=== PATIENT | female | born 2000 | race Caucasian/White ===

== ENCOUNTER 2019-07-13 21:46 | Inpatient (IN) ==
[2019-07-13] MEDS ORDERED: NS 2,000 ML IV ONE (22:09)
--- NOTE | 2019-07-13 22:16 | PROVIDER DOCUMENTATION ---
HPI-General Adult - General Chief Complaint: High Blood Sugar Stated Complaint: PT. STATES DKA Time Seen by Provider: 07/13/19 22:07 Source: patient, family Allergies/Adverse Reactions: Patient Allergies Allergy/AdvReac Type Severity Reaction Status Date / Time No Known Allergies Allergy Verified 07/13/19 22:10 Home Medications: Home Medication List Medication Instructions Recorded Confirmed Last Taken Type Insulin Glargine,Hum.rec.anlog 15 unit SQ QHS 07/13/19 07/13/19 Unknown History [Lantus Solostar] Insulin Lispro [Humalog Kwikpen] 10 unit SQ 4XDAY 07/13/19 07/13/19 Unknown History - History of Present Illness -Gen Adult Nature of Presenting Problems: 19 YO F pmh for DM I on Lantus and Novalog presents with ShOB, achyness, increased heart rate that began today. Pt states " I am in DKA". States her last time for DKA was 1 year ago, and she had an e.coli infection. She denies dysuria currently. Some c/o ShOB and cough. Quality of Pain: reports: aching (generalized pain) Onset/Duration: reports: this afternoon Timing: reports: still present Similar Symptoms Previously?: Yes Recently seen or treated by another doctor?: No - Diabetes Related Context Context: reports: high blood sugar Review of Systems - Adult - REVIEW OF SYSTEMS - ADULT Constitutional: denies: chills, fever Eyes: reports: no symptoms reported Ears, Nose, Mouth & Throat: reports: no symptoms reported Cardiovascular: reports: palpitations. denies: chest pain Respiratory: reports: shortness of breath, other (chest discomfort). denies: cough Gastrointestinal: reports: no symptoms reported Genitourinary: reports: no symptoms reported Musculoskeletal: reports: other (aching) Past History - Adult - PAST MEDICAL HISTORY-ADULT Review of Records: reports: Social history reviewed & non-contributory. Major Childhood Illnesses: reports: denies history Cardiovascular: reports: denies history Respiratory: reports: denies history Gastrointestinal: reports: denies history Neurological: reports: denies history Diabetes Type: Type 1 Diabetes controlled by:: Insulin Dependent - PRIOR SURGERIES/PROCEDURES Surgical/Procedure History: denies: recent surgery - FAMILY HISTORY Family History: reviewed, not pertinent - SOCIAL HISTORY Smoking: non-smoker Substance Use: denies Living Situation: family Physical Exam-General - PHYSICAL EXAM-ADULT Initial Vital Signs Reviewed: Yes - CONSTITUTIONAL General Appearance: alert, mild distress (tachypnea) - EYES Eyes: PERRL/EOMI - HEAD, EARS, NOSE, MOUTH & THROAT HENMT: other (dry mucous membranes) - NECK Neck: supple - RESPIRATORY Respiratory: lungs clear - CARDIOVASCULAR Cardiovascular: tachycardia - GASTROINTESTINAL (ABDOMEN) Abdominal Exam: non tender, soft - MUSCULOSKELETAL Extremity: normal range of motion, normal gait - SKIN Integumentary: normal color, normal turgor, warm/dry - NEUROLOGIC Neurologic: grossly normal - PSYCHIATRIC Psych/Mental Status: normal mood/affect, normal thought content, normal thought process, oriented x 3 Progress - PLAN OF CARE/RESULTS Progress/Plan/Lab Results: Vital Signs - 8 hr 07/13/19 21:49 Temperature 98.2 F Pulse Rate 141 H Respiratory Rate 24 Blood Pressure 115/77 O2 Sat by Pulse Oximetry 99 Laboratory Results - last 24 hr 07/13/19 22:03 POC Glucose 500 H Orders Category Date Time Status ED: Urine Bedside ORDERED Care 07/13/19 22:10 Ordered CHEST-2 VIEWS [RAD] Stat Exams 07/13/19 22:08 Ordered CBC WITH ELECTRONIC DIFF [HEME] Stat Lab 07/13/19 22:08 Uncollected COMPREHENSIVE METABOLIC PANEL [CHEM] Stat Lab 07/13/19 22:08 Uncollected LACTATE, PLASMA [CHEM] Stat Lab 07/13/19 22:09 Uncollected TSH Stat Lab 07/13/19 22:08 Uncollected URINALYSIS W/POSS RFLX CULT [URINALYSIS] Stat Lab 07/13/19 22:08 Uncollected 0.9% Sodium Chloride Inj [Ns] 2,000 ml Med 07/13/19 22:09 Active IV 999 mls/hr Result Diagrams: 07/13/19 22:58 07/13/19 22:58 - REASSESSMENT Reassessment #1 Time Reassessed: 00:50 Status: improving (labs reviewed, showing acidosis. HR improving to 120s. fluids running. Ketones in urine, elevated WBC.) Reassessment #2 Time Reassessed: 01:19 Status: improving (blood glucose down to 266. pt clinically improving.) - XRAY 1 XRAY Study: Chest Impression: Normal - CONSULTS/PCP/HOSPITALIST Notification #1 *Consult/PCP/Hospitalist*: Dr. Quintero Time Discussed: 02:16 (states to start insulin drip) Consult Disposition: Will see in ED Departure - Departure Date of Disposition Decision: 07/14/19 Time of Disposition Decision: 02:31 DIAGNOSIS: DKA (diabetic ketoacidoses) Disposition: ADMITTED INPATIENT 09 Certified Medical Emergency: Emergent Condition: Stable Referrals and Follow-Ups: None,PCP [Primary Care Provider] - - Critical Care Note This patient required my direct & personal management of CC.: No Attestation - Physician/ MARIAELENA Attestation The physician spent face to face time with patient:: Yes Advanced Practice Provider documentation review:: Supervising physician onsite and consulted in the evaluation and care of this patient. The physician did have a face to face encounter with the patient.
[2019-07-13] MEDS ORDERED: HUMALOG SUBQ ONE (22:24)
[2019-07-13 23:25] LABS: BASO# 0.07 X1000 (0.0-0.2); BASO% 0.3 % (0.0-0.8); EOS# 0.04 X1000 (0.0-0.7); EOS% 0.2 % (0.0-10.0); HEMATOCRIT 42.8 % (37.0-47.0); HEMOGLOBIN 13.3 g/dL (12.0-16.0); IMM GRAN# 0.14 X1000 (0.0-0.04); IMM GRAN% 0.7 % (0.0-0.5); LYMPH# 2.53 X1000 (1.2-3.4); MCH 30.9 PG (27-31); MCHC 31.1 g/dL (33-37); MCV 99.3 FL (81-99); MONO# 0.99 X1000 (0.11-0.59); MONO% 4.7 % (1.7-9.3); MPV 9.9 FL (7.4-10.4); NEUT# 17.23 X1000 (1.4-6.5); NEUT% 82.1 % (42.2-75.2); PLT 578 X1000 (130-400); RBC 4.31 XMIL (4.2-5.4); RDW 13.7 % (11.5-14.5)
[2019-07-13 23:54] LABS: ALLEN TEST YES; BE -19.2 mmoll (-3.0-3.0); BLOOD TYPE ARTERIAL; HCO3-(ACT) 9.9 mmoll (20.0-26.0); METHB 1.4 % (0.0-1.5); O2HB 95.9 % (95.0-99.0); PO2(98.6) 116 mmHg (60-100); SAMPLE BLOOD; SAO2 98.5 % (95.0-100.0); THB 12.5 g/dL (11.5-17.4); pH(98.6) 7.24 (7.35-7.45)
[2019-07-13 23:56] LABS: MODALITY ROOM AIR; PCO2(98.6) 13 mmHg (35-45)
[2019-07-14 00:03] LABS: INR 1.06
[2019-07-14 00:04] LABS: AGAP 38; ALB/GLOB RATIO 1.1; ALBUMIN 4.5 g/dL (3.5-5.0); ALKALINE PHOSPHATASE 221 U/L (32-104); BUN 13 mg/dL (8-22); CALCIUM 9.3 mg/dL (8.8-10.2); CHLORIDE 94 mmol/L (98-107); COSMO 297; CREATININE 1.3 mg/dL (0.5-0.9); ESTIMATED GFR 52; GOT 21 U/L (10-30); GPT 21 U/L (10-36); POTASSIUM 4.1 mmol/L (3.5-5.1); SODIUM 138 mmol/L (136-145); TCO2 6 mmol/L (25-35); TOTAL BILIRUBIN < 0.15 mg/dL (0.20-1.00); TOTAL PROTEIN 8.6 g/dL (6.3-8.3)
[2019-07-14 00:05] LABS: GLUCOSE 480 mg/dL (70-104)
[2019-07-14 00:06] LABS: PTT < 20.0 Seconds (22.3-41.8)
[2019-07-14 00:14] LABS: URINE SOURCE CLEAN CATCH
[2019-07-14 00:30] LABS: BILIRUBIN URINE NEGATIVE (NEGATIVE); BLOOD URINE MODERATE (NEGATIVE); COLOR STRAW; GLUCOSE URINE >1000 mg/dL (NEGATIVE); KETONE URINE >150 mg/dL (NEGATIVE); LEUKOCYTES URINE NEGATIVE (NEGATIVE); NITRITE URINE NEGATIVE (NEGATIVE); PH URINE 5.5; PROTEIN URINE 30 mg/dL (NEGATIVE); SP GRAVITY URINE 1.027; TURBIDITY URINE CLEAR (CLEAR); UR EPITHELIAL CELLS <10 /HPF (<10); URINE BACTERIA NEGATIVE /HPF; URINE RBC <10 /HPF (<10); URINE WBC <10 /HPF (<10); UROBILINOGEN URINE NORMAL (NORMAL)
[2019-07-14] MEDS ORDERED: HUMALOG SUBQ ONE (00:48)
[2019-07-14] MEDS ORDERED: ZOFRAN ODT PO ONE (00:52)
[2019-07-14] MEDS ORDERED: HUMULIN R IV ONE ×2 (02:25→04:50)
[2019-07-14] MEDS ORDERED: D50W SYRINGE IV PRN ×2 (02:25→04:50)
[2019-07-14] MEDS ORDERED: HUMULIN R 100 UNIT in NS 100 ML IV SCH ×5 (02:30→04:50)
[2019-07-14 02:40] LABS: AGAP 29; BUN 11 mg/dL (8-22); CHLORIDE 103 mmol/L (98-107); COSMO 287; CREATININE 1.1 mg/dL (0.5-0.9); ESTIMATED GFR > 60; GLUCOSE 209 mg/dL (70-104); POTASSIUM 3.2 mmol/L (3.5-5.1); SODIUM 141 mmol/L (136-145); TCO2 9 mmol/L (25-35)
[2019-07-14] MEDS ORDERED: KLOR-CON PO ONE (03:00)
[2019-07-14 03:22] LABS: MAGNESIUM 1.9 mg/dL (1.5-2.7); PHOSPHORUS 2.2 mg/dL (2.7-4.5)
[2019-07-14] MEDS ORDERED: D5 NS 1,000 ML IV SCH (03:45)
[2019-07-14] MEDS ORDERED: POTASSIUM CHLORIDE 20% LIQUID PO PRN ×2 (03:45→04:50)
[2019-07-14] MEDS ORDERED: POTASSIUM CHLORIDE 20 MEQ/SWI 20 MEQ/100 ML IVPB IV PRN ×2 (03:45→04:50)
[2019-07-14] MEDS ORDERED: SODIUM BICARBONATE 8.4% 100 MEQ in STERILE WATER INJ. 500 ML IV PRN ×2 (03:45→04:50)
[2019-07-14] MEDS ORDERED: POTASSIUM CHLORIDE 40 MEQ/SWI 40 MEQ/100 ML IVPB IV PRN ×2 (03:45→04:50)
[2019-07-14] MEDS ORDERED: NS 1,000 ML IV SCH (03:45)
[2019-07-14] MEDS ORDERED: SODIUM PHOSPHATE 30 MMOL in D5W 250 ML IV PRN (03:45)
[2019-07-14] MEDS ORDERED: MAGNESIUM SULFATE 2 GM/S.W.I. 2 GM/50 ML IVPB IV PRN ×2 (03:45→04:50)
[2019-07-14] MEDS ORDERED: POTASSIUM CHLORIDE 10% LIQUID PO PRN (03:45)
--- NOTE | 2019-07-14 04:47 | HISTORY AND PHYSICAL ---
PRIMARY CARE PHYSICIAN: Dr. Danny Rangel in [place]. CHIEF COMPLAINT: Nausea, not feeling well. HISTORY OF PRESENTING ILLNESS: This is a 19-year-old female with a history of diabetes mellitus type 1 who had presented to the emergency department with several days history of having nausea. She was evaluated in the emergency department. She was found to be in DKA and subsequently she will need admission for further management. At the time of my examination, patient denied any headache, fever, chills, chest pain, shortness of breath or any weight changes, just complained of nausea and not feeling well. PAST MEDICAL HISTORY: Includes diabetes mellitus type 1. PAST SURGICAL HISTORY: None. ALLERGIES: No known drug allergies. CURRENT MEDICATIONS: Include Lantus and NovoLog. SOCIAL HISTORY: She was vaping but she quit. No history of alcohol or illicit drug use. FAMILY HISTORY: No history of coronary disease. REVIEW OF SYSTEMS: Fourteen point review of systems as listed in HPI. Other systems negative. PHYSICAL EXAMINATION: GENERAL: Cooperative, friendly female. She is resting comfortably now. VITAL SIGNS: Temperature 98.2 degrees, pulse 141, respirations 24, blood pressure 115/77. HEENT: Atraumatic, normocephalic. Extraocular movements intact. PERRLA. NECK: No masses. CHEST: Clear to auscultation. CARDIOVASCULAR: Regular rate and rhythm. ABDOMEN: Soft. Positive bowel sounds. EXTREMITIES: No edema. NEUROLOGIC: She is awake, alert, oriented x3. GENITOURINARY: No bladder distention. SKIN: Warm. LABORATORIES AND STUDIES: Sodium 138, potassium 4.1, chloride 94, CO2 is 6, BUN is 13, creatinine is 1.3, glucose is 480, initially was 500. Plasma lactate 5.8. WBCs 21.00, hemoglobin 13.3, hematocrit 42.8, platelets 578,000. Blood gases show pH of 7.24, pCO2 of 13. Toxicology screen shows acetone. ASSESSMENT: A 19-year-old female with a history of diabetes mellitus type 1 who presented to emergency department with several days history of feeling nauseated. She was evaluated in the emergency department. She was found to have moderately elevated blood glucose and acetone on her laboratories. Her findings were consistent with diabetic ketoacidosis. Subsequently, she will need admission for further management. Diabetic ketoacidosis. PLAN: 1. We will admit patient to PVC unit. 2. We will start patient on insulin drip per DKA protocol. 3. We will continue with IV fluid hydration. 4. We will continue to follow, and reassess and make further recommendation based on patient's clinical course. cc: Neeraj Quintero MD
[2019-07-14] MEDS ORDERED: TYLENOL PO PRN (04:50)
[2019-07-14] MEDS ORDERED: ZOFRAN IV PRN (05:15)
--- NOTE | 2019-07-14 05:17 | EKG Report ---
Test Performed on : 07/14/2019 04:58:31 AM Test Reason : DKA Blood Pressure : / mmHG Vent. Rate : 117 BPM Atrial Rate : 117 BPM P-R Int : 120 ms QRS Dur : 066 ms QT Int : 314 ms P-R-T Axes : 043 014 030 degrees QTc Int : 438 ms Sinus tachycardia. Low voltage QRS Nonspecific T wave abnormality Abnormal ECG No previous ECGs available Confirmed by Reji THAO, Avelino Rascon ([id number]) on 07/14/2019 8:48:15 AM
[2019-07-14 05:45] LABS: AGAP 19; BUN 11 mg/dL (8-22); CHLORIDE 106 mmol/L (98-107); COSMO 277; CREATININE 0.9 mg/dL (0.5-0.9); ESTIMATED GFR > 60; GLUCOSE 95 mg/dL (70-104); MAGNESIUM 1.9 mg/dL (1.5-2.7); PHOSPHORUS 2.2 mg/dL (2.7-4.5); POTASSIUM 3.7 mmol/L (3.5-5.1); SODIUM 139 mmol/L (136-145); TCO2 14 mmol/L (25-35)
--- NOTE | 2019-07-14 05:48 | Diag Imaging Result Doc PS360 ---
EXAM: CHEST-2 VIEWS HISTORY: cough TECHNIQUE: Two views COMPARISON: None. FINDINGS: The lungs are well expanded. The heart is not enlarged. The vessels are not distended. There are no infiltrates. No pleural effusions. IMPRESSION: No pneumonia Electronically signed by Chacho Muniz 07/14/2019 5:46 AM
[2019-07-14] MEDS: POTASSIUM CHLORIDE 10% LIQUID PO PRN ×3 (06:00→14:47)
[2019-07-14] MEDS: D5 NS 1,000 ML IV PRN ×3 (06:21→17:20)
[2019-07-14] MEDS: NS 1,000 ML IV SCH ×4 (07:33→18:20)
[2019-07-14 09:13] LABS: AGAP 16; BUN 10 mg/dL (8-22); CALCIUM 7.8 mg/dL (8.8-10.2); CHLORIDE 108 mmol/L (98-107); COSMO 283; CREATININE 0.8 mg/dL (0.5-0.9); ESTIMATED GFR > 60; GLUCOSE 207 mg/dL (70-104); MAGNESIUM 1.9 mg/dL (1.5-2.7); PHOSPHORUS 2.5 mg/dL (2.7-4.5); SODIUM 139 mmol/L (136-145); TCO2 15 mmol/L (25-35)
[2019-07-14] MEDS ORDERED: SODIUM CHLORIDE 0.9% INJ SCH (13:45)
[2019-07-14] MEDS ORDERED: PROTONIX IV SCH (13:45)
--- NOTE | 2019-07-14 14:11 | PROGRESS NOTE ---
DATE: 07/14/2019 SUBJECTIVE: Patient is resting comfortably in bed. Not in any obvious distress. OBJECTIVE: Vital signs: Temperature 98.1 degrees, pulse 100, respirations 18, blood pressure 91/56, oxygen saturation 98%. HEENT: Atraumatic, normocephalic. Cardiovascular: S1, S2. Respiratory system: Has evidence of good air entry bilaterally. Abdomen: Soft, nontender. No masses felt. Extremities: No evidence of edema. Central nervous system: No obvious focal deficits noted. LABORATORY DATA: Sodium is 139, potassium 4.0, chloride 108, bicarb 15. BUN is 10 creatinine 0.8. Calcium 7.8, phosphorus 2.6. ASSESSMENT AND PLAN: 1. Diabetic ketoacidosis. Continue patient on intravenous fluids as well as intravenous insulin. Follow up on anion gap, bicarbonate level, pH, blood sugar levels. Once the patient is out of diabetic ketoacidosis we can transition to subcutaneous insulin. I will start her on a diet. She will need diabetic education. 2. Acute kidney injury. Follow up on renal function while patient is receiving intravenous fluids. 3. Leukocytosis. Etiology not clear. We will obtain urine and blood cultures as well as a chest x-ray. Follow up on patient's white count. 4. Hypophosphatemia. Replace phosphorus level. 5. Hypocalcemia. Check ionized calcium level as well as 25 hydroxy vitamin D level. 6. Deep vein thrombosis prophylaxis, proton pump inhibitor. cc: Miguel Sandhu MD
[2019-07-14 14:20] LABS: AGAP 13; BUN 9 mg/dL (8-22); CALCIUM 8.1 mg/dL (8.8-10.2); CHLORIDE 111 mmol/L (98-107); COSMO 282; CREATININE 0.7 mg/dL (0.5-0.9); ESTIMATED GFR > 60; GLUCOSE 170 mg/dL (70-104); MAGNESIUM 1.9 mg/dL (1.5-2.7); PHOSPHORUS 1.6 mg/dL (2.7-4.5); POTASSIUM 3.8 mmol/L (3.5-5.1); SODIUM 140 mmol/L (136-145); TCO2 16 mmol/L (25-35)
[2019-07-14] MEDS: NEUTRA-PHOS PO SCH ×2 (17:20→20:35)
[2019-07-14 17:35] LABS: AGAP 11; BUN 8 mg/dL (8-22); CALCIUM 8.3 mg/dL (8.8-10.2); CHLORIDE 113 mmol/L (98-107); COSMO 288; CREATININE 0.8 mg/dL (0.5-0.9); ESTIMATED GFR > 60; GLUCOSE 188 mg/dL (70-104); MAGNESIUM 1.9 mg/dL (1.5-2.7); PHOSPHORUS 1.5 mg/dL (2.7-4.5); SODIUM 143 mmol/L (136-145); TCO2 19 mmol/L (25-35)
[2019-07-14] MEDS: HUMALOG SUBQ SCH (20:34)
[2019-07-14] MEDS ORDERED: LANTUS INSULIN SUBQ SCH (21:00)
[2019-07-15] MEDS: NS 1,000 ML IV SCH (06:08)
[2019-07-15] MEDS: HUMALOG SUBQ SCH ×2 (06:10→11:34)
[2019-07-15 06:34] LABS: BASO# 0.03 X1000 (0.0-0.2); BASO% 0.3 % (0.0-0.8); EOS# 0.41 X1000 (0.0-0.7); EOS% 3.8 % (0.0-10.0); HEMATOCRIT 31.6 % (37.0-47.0); HEMOGLOBIN 9.8 g/dL (12.0-16.0); IMM GRAN# 0.03 X1000 (0.0-0.04); IMM GRAN% 0.3 % (0.0-0.5); LYMPH# 4.45 X1000 (1.2-3.4); LYMPH% 41.7 % (20.5-51.1); MCH 30.4 PG (27-31); MCV 98.1 FL (81-99); MONO# 1.01 X1000 (0.11-0.59); MONO% 9.5 % (1.7-9.3); MPV 9.5 FL (7.4-10.4); NEUT# 4.74 X1000 (1.4-6.5); NEUT% 44.4 % (42.2-75.2); PLT 315 X1000 (130-400); RBC 3.22 XMIL (4.2-5.4); RDW 13.7 % (11.5-14.5); WBC 10.67 X1000 (4.8-10.8)
[2019-07-15 06:45] LABS: AGAP 10; BUN 5 mg/dL (8-22); CALCIUM 8.3 mg/dL (8.8-10.2); CHLORIDE 107 mmol/L (98-107); COSMO 274; CREATININE 0.7 mg/dL (0.5-0.9); ESTIMATED GFR > 60; GLUCOSE 111 mg/dL (70-104); MAGNESIUM 1.7 mg/dL (1.5-2.7); PHOSPHORUS 2.9 mg/dL (2.7-4.5); POTASSIUM 3.3 mmol/L (3.5-5.1); SODIUM 138 mmol/L (136-145); TCO2 21 mmol/L (25-35)
[2019-07-15 08:14] VITALS: BP 87/65
[2019-07-15] MEDS: NEUTRA-PHOS PO SCH (09:15)
--- NOTE | 2019-07-15 14:42 | DISCHARGE SUMMARY ---
ADMISSION DATE: 07/14/2019 DISCHARGE DATE: 07/15/2019 PRIMARY CARE PHYSICIAN: Dr. Danny Rangel in [place]. ADMISSION DIAGNOSIS: Diabetic ketoacidosis in a known diabetes type 1 with hyperglycemia. DISCHARGE DIAGNOSES: 1. Diabetic ketoacidosis, resolved. 2. Diabetes type 1 with hyperglycemia, improved. SUMMARY OF FINDINGS: This is a 19-year-old female who presents to the ER with a several-day history of nausea, was found to be in DKA and was admitted on DKA protocol with insulin drip to our PVC unit. She did well on the protocol, is now off the protocol. Blood sugar when she arrived was 480. This morning she is down to 95. She is tolerating a diabetic diet and it is now felt that she can safely be discharged home. DISCHARGE MEDICATIONS: Lantus SoloSTAR 15 units subcutaneous at bedtime, Humalog KwikPen 10 units subcutaneous 4 times daily. FOLLOWUP: She will need to follow up with her primary care physician in the next 1 to 2 weeks. All discharge instructions were reviewed with the patient and she verbalized understanding. TIME SPENT: This is a 35 minute discharge. Dictated by MILTON Weber for Guevara Noyola MD cc: MILTON Weber MD Melissa Ward, CRNP
--- NOTE | 2019-07-15 18:50 | DISCHARGE SUMMARY ---
ADMISSION DATE: 07/14/2019 DISCHARGE DATE: 07/15/2019 ADDENDUM: Patient seen and examined by myself. Full note dictated and discussed with nurse practitioner. Patient presented to the hospital diagnosed with DKA. She thankfully is improved. She is back on her home insulin. She does have low potassium we are going to replace. She is tolerating a full diet therefore will discharge her home. The patient understands how to adjust insulin at home. cc: Guevara Noyola MD
== END 2019-07-15 12:10 | disposition home or self-care (01) | DRG 638 ==
LOC: ED 21:46 → 2N 07-14 03:59 → SUATTDRO 07-14 03:59
PROVIDERS: ATTEND Family Medicine